=== PATIENT | female | born 1970 | race Caucasian/White ===

== ENCOUNTER → 2016-07-31 | Outpatient (CLI) | payer BC ==
[~2016-07-31] MED LIST: CYCL10TA6 PO; ONDA4TAB7 SL
[2016-07-31 17:51] LABS: BASO % 1.6 %; BASO ABS # 0.09 K/uL (0-0.2); COMPLETE YES; EOS % 4.1 %; HEMATOCRIT 42.6 % (37-47); LYMPH % 28.8 %; LYMPH ABS # 1.62 K/uL (1.2-3.4); MEAN CELL VOLUME 91.2 fL (80-100); MONO % 5.2 %; NEUT % 60.3 %; PLATELET COUNT 281 K/uL (130-400); RED BLOOD COUNT 4.67 M/uL (4.2-5.4); WHITE BLOOD COUNT 5.62 K/uL (4.8-10.8)
[2016-07-31 18:22] LABS: URINE APPEARANCE CLEAR (CLEAR); URINE BILIRUBIN NEG (NEG); URINE COLOR YELLOW; URINE NITRITE NEG (NEG); URINE PH 5.5 (4.5-7.5); URINE SPECIFIC GRAVITY 1.005 (1.000-1.030); UROBILINOGEN NEG (NEG)
[2016-07-31 18:28] LABS: MANUAL MICROSCOPIC REQUIRED? NO; REVIEW REQ? NO
[2016-07-31 18:43] LABS: ALT/SGPT 27 U/L (12-78); BLOOD UREA NITROGEN 13 mg/dl (7-18); CARBON DIOXIDE 30 mmol/L (21-32); CHLORIDE 104 mmol/L (98-107); CHOLESTEROL 201 mg/dl (0-200); GLUCOSE 83 mg/dl (70-99); POTASSIUM 3.9 mmol/L (3.5-5.1); SODIUM 140 mmol/L (136-145); TRIGLYCERIDES 62 mg/dl (0-150); VERY LOW DENSITY LIPOPROT CALC 12 mg/dl
[2016-07-31 18:58] LABS: ALB/GLOB RATIO 1.4 (0.9-2); ALKALINE PHOSPHATASE 75 U/L (45-117); AST/SGOT 26 U/L (15-37); CHOLESTEROL/HDL RATIO 2.2; HDL CHOLESTEROL 93 mg/dl; LDL CHOLESTEROL CALCULATED 96 mg/dl
== END | disposition home or self-care (01) ==
LOC: C.LABPBG 14:51
PROVIDERS: ATTEND Neuromusculoskeletal Medicine & OMM
DX: Z00.00 Encounter for general adult medical examination without abnormal findings (principal); R31.9 Hematuria, unspecified

== ENCOUNTER 2017-06-14 10:06 | Emergency (ER) | payer BC ==
[~2017-06-14] VITALS: Ht 167.6 cm; Wt 75.9 kg
[2017-06-14 10:12] VITALS: TEMP 36.7; Ht 167.6 cm; Wt 75.9 kg
[2017-06-14] MEDS ORDERED: SODIUM CHLORIDE 0.9% 1000ML 1,000 ML IV STA (10:26)
[2017-06-14] MEDS ORDERED: ALBUT/IPRATROP 3MG/0.5MG NEB 3 ML VIAL INH STA (10:26)
[2017-06-14] MEDS ORDERED: KETOROLAC TROMETHAMINE 30 MG/ML VIAL IV STA (10:26)
--- NOTE | 2017-06-14 10:31 | EMERGENCY ROOM VISIT NOTE ---
History Report prepared by Darnell: Ubaldo Cheema Under the Supervision of: Dr. Jake Garcia M.D. First contact with patient: 10:20 Chief Complaint: CHEST PAIN Stated Complaint: CHEST PAIN, PAIN IN R ARM, COUGH History of Present Illness The patient is a 47 year old female who presents to the Emergency Room with complaints of constant, but worsening chest pains that the patient has been experiencing for the past week. The patient states that her chest pain has been constant for the past week, but has been worsening for the past couple of days. She rates the severity of her symptoms as a 3/10. The pain is localized in the center of her chest, but radiates into her right arm and into her back. There is intermittent Left upper quadrant abdominal pain that is "sharp." She has also been experiencing intermittent dizzy spells for the past week, and coughing for sometime. She denies any other associated nausea, vomiting, or diarrhea. She is not on oral contraceptives, but denies any chance of . Source of History: patient Onset: 1 week [employer] Position: chest Timing: constant, worsening Associated Symptoms: + cough, + abdominal pain, No nausea Review of Systems See HPI for pertinent positives and negatives. A total of ten systems were reviewed and were otherwise negative. Past Medical & Surgical Medical Problems: (1) No significant medical problems Surgical Problems: (1) Multile cervical spine surgeries Family History FH: cancer FH: diabetes mellitus FH: heart disease FH: hypertension FH: lung disease Social History Smoking Status: Never Smoker Alcohol Use: occasionally Housing Status: lives with family Occupation Status: employed Current/Historical Medications Scheduled PRN Ibuprofen Tab (Motrin), 800 MG PO Q8H PRN for Pain Allergies Coded Allergies: No Known Allergies (Unverified , 06/14/17) Physical Exam Vital Signs Date Time Temp Pulse Resp B/P (MAP) Pulse Ox O2 Delivery O2 Flow Rate FiO2 06/14/17 13:38 82 16 120/67 98 06/14/17 11:50 87 16 118/67 98 Room Air 06/14/17 10:47 98 Room Air 06/14/17 10:37 70 06/14/17 10:12 36.7 92 18 135/84 97 Room Air Physical Exam GENERAL: Awake, alert, well-appearing, in no distress HENT: Normocephalic, atraumatic. Oropharynx unremarkable. EYES: Normal conjunctiva. Sclera non-icteric. NECK: Supple. No nuchal rigidity. FROM. No JVD. RESPIRATORY: Clear to auscultation. CHEST: There is reproducible tenderness along the sternum. CARDIAC: Regular rate, normal rhythm. Extremities warm and well perfused. Pulses equal. ABDOMEN: Soft, non-distended. No tenderness to palpation. No rebound or guarding. No masses. RECTAL: Deferred. MUSCULOSKELETAL: Chest examination reveals no tenderness. The back is symmetrical on inspection without obvious abnormality. There is no CVA tenderness to palpation. No joint edema. LOWER EXTREMITIES: Calves are equal size bilaterally and non-tender. No edema. No discoloration. NEURO: Normal sensorium. No sensory or motor deficits noted. SKIN: No rash or jaundice noted. Medical Decision & Procedures ER Provider Diagnostic Interpretation: Radiology results as stated below per my review and radiologist interpretation: CHEST ONE VIEW PORTABLE CLINICAL HISTORY: Chest pain. COMPARISON STUDY: Chest radiograph October 19, 2012. FINDINGS: Incidental note is made of postoperative findings within the cervical spine. Lung volumes are normal. Lungs are clear. No pneumothorax or pleural effusion is noted. Cardiac size is normal. Mediastinal contours are normal. There is no evidence for pulmonary edema. IMPRESSION: No acute cardiopulmonary findings. Electronically signed by: Brent Myers M.D. 06/14/2017 10:45 AM Dictated Date/Time: 06/14/2017 10:44 AM Laboratory Results 06/14/17 10:25 Red Blood Count 4.75, Mean Corpuscular Volume 90.9, Mean Corpuscular Hemoglobin 32.2, Mean Corpuscular Hemoglobin Concent 35.4, Mean Platelet Volume 10.6, Neutrophils (%) (Auto) 50.4, Lymphocytes (%) (Auto) 35.8, Monocytes (%) (Auto) 6.1, Eosinophils (%) (Auto) 6.1, Basophils (%) (Auto) 1.6, Neutrophils # (Auto) 2.49, Lymphocytes # (Auto) 1.77, Monocytes # (Auto) 0.30, Eosinophils # (Auto) 0.30, Basophils # (Auto) 0.08 06/14/17 10:25 Test 06/14/17 10:25 White Blood Count 4.94 K/uL (4.8-10.8) Red Blood Count 4.75 M/uL (4.2-5.4) Hemoglobin 15.3 g/dL (12.0-16.0) Hematocrit 43.2 % (37-47) Mean Corpuscular Volume 90.9 fL (80-100) Mean Corpuscular Hemoglobin 32.2 pg (25-34) Mean Corpuscular Hemoglobin Concent 35.4 g/dl (32-36) Platelet Count 267 K/uL (130-400) Mean Platelet Volume 10.6 fL (7.4-10.4) Neutrophils (%) (Auto) 50.4 % Lymphocytes (%) (Auto) 35.8 % Monocytes (%) (Auto) 6.1 % Eosinophils (%) (Auto) 6.1 % Basophils (%) (Auto) 1.6 % Neutrophils # (Auto) 2.49 K/uL (1.4-6.5) Lymphocytes # (Auto) 1.77 K/uL (1.2-3.4) Monocytes # (Auto) 0.30 K/uL (0.11-0.59) Eosinophils # (Auto) 0.30 K/uL (0-0.5) Basophils # (Auto) 0.08 K/uL (0-0.2) RDW Standard Deviation 41.0 fL (36.4-46.3) RDW Coefficient of Variation 12.3 % (11.5-14.5) Immature Granulocyte % (Auto) 0.0 % Immature Granulocyte # (Auto) 0.00 K/uL (0.00-0.02) Anion Gap 7.0 mmol/L (3-11) Est Creatinine Clear Calc Drug Dose 62.4 ml/min Estimated GFR () 64.9 Estimated GFR (Non- 56.0 BUN/Creatinine Ratio 12.0 (10-20) Calcium Level 9.4 mg/dl (8.5-10.1) Total Bilirubin 0.4 mg/dl (0.2-1) Direct Bilirubin 0.1 mg/dl (0-0.2) Aspartate Amino Transf (AST/SGOT) 22 U/L (15-37) Alanine Aminotransferase (ALT/SGPT) 24 U/L (12-78) Alkaline Phosphatase 81 U/L (45-117) Troponin I < 0.015 ng/ml (0-0.045) Total Protein 7.5 gm/dl (6.4-8.2) Albumin 4.2 gm/dl (3.4-5.0) Lipase 312 U/L (73-393) Laboratory results reviewed by me Medications Administered Medications (Trade) Dose Ordered Sig/[place] Route Start Time Stop Time Status Last Admin Dose Admin Sodium Chloride 1,000 ml @ 999 mls/hr Q1H1M STAT IV 06/14/17 10:26 06/14/17 11:26 DC 06/14/17 10:26 999 MLS/HR Ketorolac Tromethamine (Toradol Inj) 15 mg NOW STAT IV 06/14/17 10:26 06/14/17 10:30 DC 06/14/17 10:41 15 MG Albuterol/ Ipratropium (Duoneb) 3 ml NOW STAT INH 06/14/17 10:26 06/14/17 10:30 DC 06/14/17 10:41 3 ML ECG Indication: chest pain Rate (beats per minute): 71 Rhythm: sinus with SA Findings: T-wave inversion (non-specific T-wave inversion in V3), no acute ischemic change, other (normal axis) Comparison ECG Date: no prior available Change: Patient's electrocardiogram interpreted by me. ED Course 1023: The patient was evaluated in room A10. A complete history and physical exam was performed. 1026: Ordered Duoneb 3 mL INH, Toradol 15 mg IV, Sodium Chloride 1000 mL @ 999 mL/hr IV. 1338: I reevaluated the patient she notes that she feels the same. Discussed results and discharge instructions: She verbalized understanding and agreement. The patient is ready for discharge. Medical Decision I reviewed the patient's past medical history, medications, and the nursing notes as described above. Differential diagnosis: Etiologies such as cardiac ischemia, aortic dissection, pulmonary embolism, pneumonia, pneumothorax, musculoskeletal, infections, pericarditis, myocarditis , esophageal rupture, gastrointestinal, as well as others were entertained. The patient is a 47-year-old woman presents to emergency department with 1 week of constant chest pain with radiation to her right arm in the setting of a nonproductive cough for the past 2 weeks per hpi. Of note the patient does have a family history of early heart disease however it was in her father who was a smoker. Otherwise the patient is well-appearing, no acute distress, afebrile stable vital signs. EKG with non-specific TWI V3 and otherwise unremarkable. Trop negative in the setting of constant sx. Heart score is 2, low risk, thus ACS unlikely. No tachycardia or hypoxia, PERC negative. PE not likely. Sx possibly related to muscular strain the setting of the patient's URI. Given neb however denies any improvement thus will defer rx for mdi. Reproducible pain on palpation suggests muscular/costochondritis. Plan for NSAIDS and pcp f/u. Findings and plan for follow-up reviewed with patient. Patient agreeable and d/c'd per discharge instructions. Blood Pressure Screening Patient's blood pressure: Normal blood pressure Impression Primary Impression: Chest wall pain Scribe Attestation The scribe's documentation has been prepared under my direction and personally reviewed by me in its entirety. I confirm that the note above accurately reflects all work, treatment, procedures, and medical decision making performed by me. Departure Information Dispostion Home / Self-Care Prescriptions Ibuprofen Tab (MOTRIN) 800 Mg Tab 800 MG PO Q8H Y for Pain, #21 TAB Prov: Jake Garcia M.D. 06/14/17 Referrals Odell Augustin D.O. (PCP) Patient Instructions ED Chest Pain Atypical Unkn Cause, ED Chest Pain Costochondritis, My [facility] Additional Instructions Please follow up with your primary care physician in the next 1-3 days for re- evaluation. The cause of your symptoms is unclear at this time but may be due to muscular strain. Otherwise, your exam, EKG, chest xray, and lab results did not show signs of an emergent condition at this time. Acetaminophen or ibuprofen for pain and fevers as needed. Drink plenty of fluids to ensure hydration. Return to the emergency department for worsening symptoms as described in the accompanying instructions.
--- NOTE | 2017-06-14 10:46 | DIAGNOSTIC IMAGING REPORT ---
CHEST ONE VIEW PORTABLE CLINICAL HISTORY: Chest pain. COMPARISON STUDY: Chest radiograph October 19, 2012. FINDINGS: Incidental note is made of postoperative findings within the cervical spine. Lung volumes are normal. Lungs are clear. No pneumothorax or pleural effusion is noted. Cardiac size is normal. Mediastinal contours are normal. There is no evidence for pulmonary edema. IMPRESSION: No acute cardiopulmonary findings. Electronically signed by: Brent Myers M.D. 06/14/2017 10:45 AM Dictated Date/Time: 06/14/2017 10:44 AM
[2017-06-14 10:47] VITALS: O2SAT 98
[2017-06-14 10:55] LABS: BASO % 1.6 %; BASO ABS # 0.08 K/uL (0-0.2); EOS % 6.1 %; HEMATOCRIT 43.2 % (37-47); HEMOGLOBIN 15.3 g/dL (12.0-16.0); LYMPH % 35.8 %; LYMPH ABS # 1.77 K/uL (1.2-3.4); MEAN CELL VOLUME 90.9 fL (80-100); MEAN CORPUSCULAR HEMOGLOBIN 32.2 pg (25-34); MEAN CORPUSCULAR HGB CONC 35.4 g/dl (32-36); MEAN PLATELET VOLUME 10.6 fL (7.4-10.4); MONO % 6.1 %; NEUT % 50.4 %; NEUT ABS # 2.49 K/uL (1.4-6.5); PLATELET COUNT 267 K/uL (130-400); RED CELL DISTRIBUTION WIDTH CV 12.3 % (11.5-14.5); WHITE BLOOD COUNT 4.94 K/uL (4.8-10.8)
[2017-06-14 11:17] LABS: ALBUMIN 4.2 gm/dl (3.4-5.0); ALT/SGPT 24 U/L (12-78); AST/SGOT 22 U/L (15-37); BLOOD UREA NITROGEN 14 mg/dl (7-18); CALCIUM 9.4 mg/dl (8.5-10.1); CARBON DIOXIDE 30 mmol/L (21-32); CREATININE 1.16 mg/dl (0.60-1.20); GLUCOSE 85 mg/dl (70-99); LIPASE 312 U/L (73-393); POTASSIUM 3.8 mmol/L (3.5-5.1); SODIUM 140 mmol/L (136-145)
[2017-06-14 11:25] LABS: ALKALINE PHOSPHATASE 81 U/L (45-117); TOTAL PROTEIN 7.5 gm/dl (6.4-8.2)
[2017-06-14] MEDS ORDERED: IBUP-1451 PO (13:24)
[2017-06-14 13:38] VITALS: BP 120/67; PULSE 82; O2SAT 98
== END 2017-06-14 13:40 | disposition home or self-care (01) ==
LOC: C.EDB 10:10 → C.EDA 13:40
DX: R07.89 Other chest pain (principal); R42 Dizziness and giddiness; Z83.3 Family history of diabetes mellitus; Z82.49 Family history of ischemic heart disease and other diseases of the circulatory system; Z81.2 Family history of tobacco abuse and dependence

== ENCOUNTER → 2017-06-18 | Outpatient (CLI) | payer BC ==
[~2017-06-18] MED LIST changes: -CYCL10TA6 PO; +IBUP-1451 PO; -ONDA4TAB7 SL
[2017-06-18 12:29] LABS: HEMATOCRIT 43.8 % (37-47); HEMOGLOBIN 15.2 g/dL (12.0-16.0); MEAN CELL VOLUME 90.5 fL (80-100); MEAN CORPUSCULAR HEMOGLOBIN 31.4 pg (25-34); MEAN CORPUSCULAR HGB CONC 34.7 g/dl (32-36); PLATELET COUNT 283 K/uL (130-400); RED CELL DISTRIBUTION WIDTH CV 12.2 % (11.5-14.5); RED CELL DISTRIBUTION WIDTH SD 40.6 fL (36.4-46.3); WHITE BLOOD COUNT 4.33 K/uL (4.8-10.8)
[2017-06-18 12:48] LABS: BLOOD UREA NITROGEN 16 mg/dl (7-18); CALCIUM 8.9 mg/dl (8.5-10.1); CARBON DIOXIDE 30 mmol/L (21-32); CREATININE 1.25 mg/dl (0.60-1.20); GLUCOSE 89 mg/dl (70-99); POTASSIUM 3.9 mmol/L (3.5-5.1); SODIUM 139 mmol/L (136-145)
== END | disposition home or self-care (01) ==
LOC: C.LABPBG 09:47
PROVIDERS: ATTEND Physician Assistant
DX: R53.83 Other fatigue (principal); M25.50 Pain in unspecified joint